=== PATIENT | female | born 1945 | race Two or more races ===

== ENCOUNTER 2019-08-01 07:46 | Outpatient (CLI) | payer OTHER | END 2019-08-01 08:20 | disposition home or self-care (01) | LOC: NUCLEAR 07:46 → EDBD 07:46 → NUCLEAR 08:00 | DX: I25.118 Atherosclerotic heart disease of native coronary artery with other forms of angina pectoris (principal); R07.2 Precordial pain | CPT/HCPCS: 78452; 93017; A9500 ==